=== PATIENT | female | born 2000 | race African-American/Black ===

== ENCOUNTER 2021-07-09 14:34 | Emergency (ER) | payer SELFPAY ==
[~2021-07-09] VITALS: Ht 162.6 cm; Wt 52.2 kg
[2021-07-09] MEDS ORDERED: KETOROLAC TROMETHAMINE 30 MG/ML VIAL IV STA (14:59)
[2021-07-09] MEDS ORDERED: SODIUM CHLORIDE 0.9% 1000ML 1,000 ML IV STA (14:59)
[2021-07-09 15:28] LABS: EOSINOPHILS # (AUTO) 0.1 (0.0-0.4); EOSINOPHILS % 1.5 % (0.0-6.0); HEMATOCRIT 33.8 % (34.2-44.1); HEMOGLOBIN 10.6 g/dL (12.0-16.0); LYMPHOCYTES # (AUTO) 1.9 (1.0-3.2); LYMPHOCYTES % 47.6 % (18.0-39.1); MEAN CORPUSCULAR HEMOGLOBIN 26.4 pg (28-32); MEAN CORPUSCULAR HGB CONC 31.4 g/dL (31-35); MEAN CORPUSCULAR VOLUME 84.1 fL (81-99); MONOCYTES # (AUTO) 0.3 (0.2-0.8); MONOCYTES % 6.9 % (4.4-11.3); NEUTROPHILS # (AUTO) 1.7 (2.1-6.9); PLATELET COUNT 322 x10e3/uL (140-360); RED BLOOD COUNT 4.02 x10e6/uL (3.6-5.1); RED CELL DISTRIBUTION WIDTH 13.8 % (11.7-14.4)
[2021-07-09 15:45] LABS: ALANINE AMINOTRANSFERASE 17 IU/L (0-55); ALBUMIN 3.7 g/dL (3.5-5.0); ALBUMIN/GLOBULIN RATIO 1.2 (0.8-2.0); ALKALINE PHOSPHATASE 78 IU/L (40-150); BLOOD UREA NITROGEN 9 mg/dL (7-26); BUN/CREATININE RATIO 13 (6-25); CALCIUM 8.6 mg/dL (8.4-10.2); CARBON DIOXIDE 26 mmol/L (22-29); CHLORIDE 108 mmol/L (98-107); EST GLOMERULAR FILTRATION RATE 104 ML/MIN (60-); GLUCOSE 80 mg/dL (74-118); SODIUM 139 mmol/L (136-145)
[2021-07-09 16:07] LABS: CLARITY,URINE SL CLOUDY (CLEAR); COLOR,URINE YELLOW (YELLOW); KETONES,URINE NEGATIVE (NEGATIVE); LEUKOCYTE ESTERASE ,URINE NEGATIVE (NEGATIVE); NITRITE,URINE NEGATIVE (NEGATIVE); PROTEIN,URINE DIPSTICK NEGATIVE (NEGATIVE); URINE UROBILINOGEN 0.2 mg/dL (0.2 - 1)
[2021-07-09] MEDS ORDERED: Morphine 2mg Syringe 2 MG/ML SYR IV ONE (16:15)
[2021-07-09 16:19] LABS: BACTERIA,URINE MODERATE /HPF; EPITHELIAL CELLS,URINE MANY /LPF
== END 2021-07-09 17:44 | disposition home or self-care (01) ==
LOC: ER 15:00
DX: R10.84 Generalized abdominal pain (principal); R10.2 Pelvic and perineal pain; F17.210 Nicotine dependence, cigarettes, uncomplicated
CPT/HCPCS: 36415; 76830; 76856; 80053; 81001; 84702; 85025; 99284; J1885; J2270; J7030

== ENCOUNTER 2021-07-10 09:49 | Emergency (ER) | payer SELFPAY ==
[~2021-07-10] VITALS: Ht 162.6 cm; Wt 52.2 kg
== END 2021-07-10 10:32 | disposition home or self-care (01) ==
LOC: ER 10:01
DX: R10.30 Lower abdominal pain, unspecified (principal)
CPT/HCPCS: 99282